=== PATIENT | male | born 1980 | race Hispanic/Latino ===

== ENCOUNTER 2017-02-22 05:45 | Emergency (ER) | payer OTHER ==
[2017-02-22 05:50] VITALS: BP 143/87
[2017-02-22] MEDS ORDERED: NAPROXEN 250 MG TAB PO ONE (06:15)
[2017-02-22] MEDS ORDERED: NAPR500T PO (06:25)
--- NOTE | 2017-02-22 09:42 | REP ---
Clinical: Trauma. Technique: AP, lateral, bilateral oblique views left hand . Findings: The osseous structures and joint spaces are intact and normal. There is no evidence for acute fracture or dislocation. Surrounding soft tissues are unremarkable. No subcutaneous emphysema or radiodense foreign body. Impression: Normal left hand series . No acute fracture or dislocation. Signed by Manpreet Thao MD 02/22/2017 08:21 A
== END 2017-02-22 06:30 | disposition home or self-care (01) ==
LOC: M ED 05:45
DX: S63.653A Sprain of metacarpophalangeal joint of left middle finger, initial encounter (principal); S63.635A Sprain of interphalangeal joint of left ring finger, initial encounter; X50.9XXA Other and unspecified overexertion or strenuous movements or postures, initial encounter; Y92.59 Other trade areas as the place of occurrence of the external cause; Y93.89 Activity, other specified; Y99.0 Civilian activity done for income or pay; Z87.891 Personal history of nicotine dependence

== ENCOUNTER 2017-07-11 01:52 | Emergency (ER) | payer OTHER ==
[2017-07-11] MEDS: KETOROLAC 60 MG/2 ML VIAL (J1885) IM (03:08)
== END 2017-07-11 03:26 | disposition home or self-care (01) ==
LOC: M ED 01:52
DX: S86.912A Strain of unspecified muscle(s) and tendon(s) at lower leg level, left leg, initial encounter (principal); W01.198A Fall on same level from slipping, tripping and stumbling with subsequent striking against other object, initial encounter; Y92.89 Other specified places as the place of occurrence of the external cause; Y93.01 Activity, walking, marching and hiking
CPT/HCPCS: J1885

== ENCOUNTER 2017-12-25 13:47 | Emergency (ER) | payer OTHER, SELFPAY ==
[2017-12-25] MEDS: IBUPROFEN 600 MG TAB PO (15:15)
== END 2017-12-25 16:20 | disposition home or self-care (01) ==
LOC: M ED 13:47
DX: S89.91XA Unspecified injury of right lower leg, initial encounter (principal); X50.1XXA Overexertion from prolonged static or awkward postures, initial encounter; Y92.9 Unspecified place or not applicable; Y93.9 Activity, unspecified; Y99.0 Civilian activity done for income or pay; Z79.899 Other long term (current) drug therapy
CPT/HCPCS: 73564

== ENCOUNTER → 2022-01-18 | Outpatient (CLI) | payer OTHER ==
[~2022-01-18] MED LIST: AMOX875T2 PO; DRIS50003 PO; HYDR-3713 PO; HYDR-3715 PO; KETO10TAB PO; METF500T13 PO; NAPR-837 PO; ONDA4TAB6 PO
== END ==
LOC: M SLEEP 20:00
PROVIDERS: ATTEND Internal Medicine
DX: G47.33 Obstructive sleep apnea (adult) (pediatric) (principal)

== ENCOUNTER 2022-05-24 18:20 | Emergency (ER) | payer OTHER ==
[~2022-05-24] VITALS: Ht 190.5 cm; Wt 150.3 kg
[2022-05-24] MEDS ORDERED: PANT40TA29 (18:27)
[2022-05-24] MEDS ORDERED: [UNRECOGNIZED DRUG - OTHER] (18:27)
[2022-05-24] MEDS ORDERED: DICY10CA13 PO (18:28)
[2022-05-24 20:28] LABS: BASO # 0.1 10^3/uL (0.0-0.2); BASO % 0.6 % (0.0-1.0); EOS % 0.3 % (0.0-3.0); HEMOGLOBIN 14.4 g/dl (13.5-17.5); LYMPH # 2.8 10^3/uL (1.5-5.0); LYMPH % 22.4 % (24.0-44.0); MEAN CORPUSCULAR HEMOGLOBIN 29.2 pg (27.0-33.0); MEAN CORPUSCULAR VOLUME 91.3 fl (80.0-96.0); MONO # 1.1 10^3/uL (0.0-0.8); MONO % 8.3 % (2.0-8.0); NEUTROPHILS # 8.6 10^3/uL (1.5-8.5); NEUTROPHILS % 68.1 % (36.0-66.0); PLATELET COUNT, AUTOMATED 415 10^3/uL (150-450); RED BLOOD COUNT 4.93 10^6/uL (4.30-6.10); WHITE BLOOD COUNT 12.6 10^3/uL (4.0-10.0)
[2022-05-24 20:31] LABS: ALBUMIN 3.2 G/DL (3.2-5.2); BILIRUBIN,DIRECT 0.5 MG/DL (<0.4); BILIRUBIN,TOTAL 1.2 MG/DL (0.3-1.2); TOTAL PROTEIN 7.2 G/DL (5.7-8.2)
[2022-05-24] MEDS ORDERED: ISOVUE-370 76% 100ML VIAL As Ordered ONE (21:18)
[2022-05-24] MEDS ORDERED: KETOROLAC 30 MG/ML 1ML VIAL IV ONE (21:20)
[2022-05-24] MEDS ORDERED: NS 1,000 ML IV ONE (21:20)
[2022-05-24] MEDS ORDERED: ONDANSETRON 4MG 2ML VIAL IV ONE (21:20)
[2022-05-24 23:45] VITALS: BP 113/60
[2022-05-25] MEDS ORDERED: traMADol 50 MG TAB PO ONE
[2022-05-25] MEDS ORDERED: CIPR-249 PO (00:03)
[2022-05-25] MEDS ORDERED: CIPROFLOXACIN 500MG TABLET PO ONE (01:00)
== END 2022-05-25 00:25 | disposition home or self-care (01) ==
LOC: M ED 18:20
DX: N39.0 Urinary tract infection, site not specified (principal); K63.89 Other specified diseases of intestine; Z79.899 Other long term (current) drug therapy; Z79.4 Long term (current) use of insulin
CPT/HCPCS: 74021; 74177; 80047; 80076; 81000; 81015; 83605; 83690; 85025; 87086; 87486; 87581; 87633; 87798; 96361; 96374; 99284; J1885; J2405; Q9967

== ENCOUNTER 2022-05-25 18:03 | Emergency (ER) | payer OTHER ==
[~2022-05-25] VITALS: Ht 190.5 cm; Wt 148.9 kg
[~2022-05-25 18:03] MED LIST changes: +CIPR-249 PO; +DICY10CA13 PO; +PANT40TA29; +[UNRECOGNIZED DRUG - OTHER]
[2022-05-25 18:04] VITALS: BP 138/80
[2022-05-25] MEDS ORDERED: ACETAMINOPHEN 325 MG TAB PO ONE (20:05)
== END 2022-05-25 22:41 | disposition left against medical advice (07) ==
LOC: M ED 18:03
DX: Z53.21 Procedure and treatment not carried out due to patient leaving prior to being seen by health care provider (principal)

== ENCOUNTER → 2022-12-06 | Outpatient (CLI) | payer OTHER ==
[~2022-12-06] MED LIST changes: +DICY-61 PO; -DICY10CA13 PO
== END | disposition home or self-care (01) ==
LOC: M PLALAB 13:43
PROVIDERS: ATTEND Internal Medicine Gastroenterology
DX: K90.0 Celiac disease (principal)

== ENCOUNTER → 2023-02-22 | Day surgery (SDC) | payer OTHER ==
[~2023-02-22] VITALS: Ht 190.5 cm; Wt 145.7 kg
[~2023-02-22] MED LIST changes: +D 10CHW PO; +JARD1TAB3 PO; +LEXA1TAB2 PO; +LIDOCAINE 2% 100MG/5ML SDV (FOR ANES.) As Ordered ONE; +NS 1,000 ML IV ONE; +TRAM50TA2 PO; +propofoL 200 MG/20 ML VIAL As Ordered ONE
[2023-02-22 09:04] VITALS: TEMP 97.2
[2023-02-22 09:35] VITALS: BP 119/73; O2SAT 98
== END | disposition home or self-care (01) ==
LOC: M OPP 07:16
PROVIDERS: ATTEND Internal Medicine Gastroenterology
DX: K57.32 Diverticulitis of large intestine without perforation or abscess without bleeding (principal); K57.30 Diverticulosis of large intestine without perforation or abscess without bleeding; K52.89 Other specified noninfective gastroenteritis and colitis; R19.4 Change in bowel habit; K29.70 Gastritis, unspecified, without bleeding; R76.8 Other specified abnormal immunological findings in serum; E11.9 Type 2 diabetes mellitus without complications; Z79.2 Long term (current) use of antibiotics; Z79.84 Long term (current) use of oral hypoglycemic drugs; Z79.891 Long term (current) use of opiate analgesic; Z79.899 Other long term (current) drug therapy

== ENCOUNTER 2023-06-11 00:02 | Emergency (ER) | payer OTHER ==
[~2023-06-11] VITALS: Ht 190.5 cm; Wt 146.1 kg
[~2023-06-11 00:02] MED LIST changes: -LIDOCAINE 2% 100MG/5ML SDV (FOR ANES.) As Ordered ONE; -NS 1,000 ML IV ONE; -propofoL 200 MG/20 ML VIAL As Ordered ONE
[2023-06-11] MEDS ORDERED: TRAM50TA2 PO (00:13)
[2023-06-11] MEDS ORDERED: DICY-61 PO (00:13)
[2023-06-11] MEDS ORDERED: DIPH50CA PO (00:13)
[2023-06-11 02:25] LABS: BASO # 0.1 10^3/uL (0.0-0.2); BASO % 0.6 % (0.0-1.0); EOS # 0.1 10^3/uL (0.0-0.5); EOS % 1.1 % (0.0-3.0); HEMATOCRIT 49.3 % (42.0-52.0); HEMOGLOBIN 15.9 g/dl (13.5-17.5); LYMPH # 1.9 10^3/uL (1.5-5.0); LYMPH % 19.5 % (24.0-44.0); MEAN CORPUSCULAR HEMOGLOBIN 29.4 pg (27.0-33.0); MEAN CORPUSCULAR HGB CONC 32.3 g/dl (32.0-36.5); MEAN CORPUSCULAR VOLUME 91.1 fl (80.0-96.0); MONO # 0.8 10^3/uL (0.0-0.8); MONO % 7.9 % (2.0-8.0); NEUTROPHILS # 6.7 10^3/uL (1.5-8.5); NEUTROPHILS % 70.5 % (36.0-66.0); PLATELET COUNT, AUTOMATED 385 10^3/uL (150-450); RED BLOOD COUNT 5.41 10^6/uL (4.30-6.10); WHITE BLOOD COUNT 9.6 10^3/uL (4.0-10.0)
[2023-06-11 02:48] LABS: LIPASE 25 U/L (12-53)
[2023-06-11 02:50] LABS: ALBUMIN 3.5 G/DL (3.2-5.2); ALKALINE PHOSPHATASE 64 U/L (46-116); ALT/SGPT 39 U/L (7.0-40); AST/SGOT 21 U/L (<34); BILIRUBIN,DIRECT 0.3 MG/DL (<0.4); BILIRUBIN,TOTAL 0.7 MG/DL (0.3-1.2); BLOOD UREA NITROGEN 9 MG/DL (9-23); CALCIUM LEVEL 8.7 MG/DL (8.5-10.1); CARBON DIOXIDE LEVEL 23 MMOL/L (20-31); CHLORIDE LEVEL 105 MMOL/L (98-107); CREATININE FOR GFR 0.87 MG/DL (0.70-1.30); GLOMERULAR FILTRATION RATE > 60.0 (>60); GLUCOSE, FASTING 98 MG/DL (60-100); POTASSIUM SERUM 3.9 MMOL/L (3.5-5.1); SODIUM LEVEL 137 MMOL/L (136-145); TOTAL PROTEIN 7.1 G/DL (5.7-8.2)
[2023-06-11] MEDS ORDERED: MORPHINE 4 MG/ML 1ML VIAL IV PRN (03:05)
[2023-06-11] MEDS ORDERED: ONDANSETRON 4MG 2ML VIAL IV ONE (03:05)
[2023-06-11] MEDS ORDERED: ACETAMINOPHEN TAB 650MG DOSE (2X325MG) PO ONE (03:05)
[2023-06-11] MEDS ORDERED: NS 1,000 ML IV ONE (03:05)
[2023-06-11] MEDS ORDERED: ISOVUE-370 76% 100ML VIAL As Ordered ONE (03:11)
[2023-06-11 05:16] LABS: RSV AMPLIFICATION NEGATIVE (NEGATIVE)
[2023-06-11] MEDS ORDERED: KETOROLAC 30 MG/ML 1ML VIAL IV ONE (06:25)
[2023-06-11] MEDS ORDERED: PIPERACILLIN/TAZOBACTAM SOD 4.5 GM in D5W MINI-BAG PLUS 50 ML IV ONE (06:25)
[2023-06-11] MEDS ORDERED: AMOX875T2 PO (09:14)
[2023-06-11 09:45] VITALS: BP 108/63; TEMP 97; O2SAT 95
== END 2023-06-11 10:15 | disposition home or self-care (01) ==
LOC: M ED 00:02
DX: K57.32 Diverticulitis of large intestine without perforation or abscess without bleeding (principal); F43.10 Post-traumatic stress disorder, unspecified; K58.9 Irritable bowel syndrome, unspecified; Z79.2 Long term (current) use of antibiotics; Z79.891 Long term (current) use of opiate analgesic; Z79.899 Other long term (current) drug therapy
CPT/HCPCS: 74177; 80048; 80076; 81001; 83605; 83690; 85025; 87040; 87631; 93041; 96365; 96366; 96375; 99285; J1885; J2405; J2543; Q9967

== ENCOUNTER 2023-09-19 08:53 | Day surgery (SDC) | payer OTHER ==
[~2023-09-19] VITALS: Ht 190.5 cm; Wt 149.3 kg
[~2023-09-19 08:53] MED LIST changes: +DIPH50CA PO; +GLYCOPYRROLATE INJ 0.2 MG/ML 2 ML VIAL As Ordered ONE; +NS 1,000 ML IV ONE; +THERTAB52 PO; +propofoL 200 MG/20 ML VIAL As Ordered ONE
[2023-09-19 10:13] VITALS: BP 144/90; TEMP 97.2; O2SAT 95
== END 2023-09-19 11:25 | disposition home or self-care (01) ==
LOC: M OPP 08:53
PROVIDERS: ATTEND Internal Medicine Gastroenterology
DX: K63.5 Polyp of colon (principal); K57.30 Diverticulosis of large intestine without perforation or abscess without bleeding; R19.4 Change in bowel habit; G47.30 Sleep apnea, unspecified; Z99.89 Dependence on other enabling machines and devices; Z79.84 Long term (current) use of oral hypoglycemic drugs; Z79.899 Other long term (current) drug therapy